=== PATIENT | female | born 1990 | race Hispanic/Latino ===

== ENCOUNTER 2023-10-21 11:28 | Day surgery (SDC) | payer BC ==
--- NOTE | 2023-10-19 17:36 | EKG ---
Test Date: 2023-10-18 Test Time: 12:24:11 Toxicologist: ALIYA MEASUREMENT RESULTS: Intervals: Rate: 57 CO: 140 QRSD: 94 QT: 414 QTc: 402 [place]: P: 46 CO: 140 QRS: 64 T: 61 INTERPRETIVE STATEMENTS: Sinus bradycardia Otherwise normal ECG No previous ECG available for comparison Electronically Signed On 10-19-23 17:34:08 COLD ROLL OPERATOR by Adam Martin
[2023-10-21] MEDS ORDERED: CEFAZOLIN SODIUM 2 GM/VIAL ONE (13:48)
[2023-10-21] MEDS ORDERED: Ringers Lactate 1,000 ML IV ONE (13:48)
[2023-10-21] MEDS ORDERED: dexAMETHasone 4 MG/ML VIAL ONE (15:14)
[2023-10-21] MEDS ORDERED: FENTANYL CITR 100 MCG/2 ML ONE (15:14)
[2023-10-21] MEDS ORDERED: MIDAZOLAM HCL 2 MG/2 ML INJ ONE (15:14)
[2023-10-21] MEDS ORDERED: LIDOCAINE 1% MPF 5 ML VIAL ONE (15:14)
[2023-10-21] MEDS ORDERED: ROCURONIUM 50 MG/5 ML VIAL IV ONE (15:14)
[2023-10-21] MEDS ORDERED: propofoL 200 MG/20 ML VIAL IV ONE (15:14)
[2023-10-21] MEDS ORDERED: ONDANSETRON 4 MG/2 ML VIAL ONE (15:15)
[2023-10-21] MEDS: BUPIVACAINE 0.25% PF 30 ML VIAL ONE ×2 (15:58→16:07)
[2023-10-21] MEDS ORDERED: SUGAMMADEX SODIUM 200 MG/2 ML VIAL IV ONE (16:19)
[2023-10-21] MEDS ORDERED: KETOROLAC 30 MG/ML INJ ONE (16:26)
--- NOTE | 2023-10-21 16:33 | P.OP ---
Preoperative diagnosis: Umbilical Hernia Postoperative diagnosis: Umbilical Hernia Primary procedure: Laparoscopic Umbilical Hernia Repair with mesh Anesthesia: GETA + Local Estimated blood loss: <5cc Specimen: None Findings: ~ 1.5cm hernia defect Complications: None () Implants: Bard ventralite ST 11.4cm round mesh, sorbafix x 45 tacks Transferred to: Recovery Room Condition: Good
[2023-10-21] MEDS: HYDROMORPHONE HCL 1 MG/ML INJ ONE ×4 (16:43→17:00)
[2023-10-21] MEDS ORDERED: HYDROCODONE/APAP 7.5/325 MG TAB ONE (17:47)
[2023-10-21 18:15] VITALS: BP 133/90; TEMP 96.9; O2SAT 100
--- NOTE | 2023-10-22 02:59 | OP ---
Date of Procedure: 10/21/2023 Surgeon: Claus Anthony MD, Preoperative Diagnosis: Umbilical hernia. Postoperative Diagnosis: Umbilical hernia. Procedure Performed: Laparoscopic umbilical hernia repair with mesh. Anesthesia: General endotracheal plus local with 0.25% Marcaine without epinephrine. Estimated Blood Loss: Less than 5 mL. Specimen: None. Findings: Approximately 1.5 cm umbilical hernia defect. Complications: None. Implants: Bard Ventralight ST mesh with Echo Positioning System, 11.4 cm round mesh utilized, SorbaF ix absorbable fixation tacks x45. Disposition: The patient was transferred to the recovery room in good condition. Procedure In Detail: After informed was obtained, the patient was brought to the operating room, pre pped and draped in the usual sterile fashion after adequate anesthesia was achieved. I anesthetized an area of the left upper quadrant down to subcutaneous tissues. A 5 mm 0-degree optical trocar was introduced in the abdomen without incident or complication. Insufflation was obtained to 15 mmHg at this time. There was no injury to vital structures upon entry into the abdomen. Additional trocar w as chosen in the left mid abdomen. This was similarly anesthetized, sharply incised and a 12 mm troc ar was placed under direct visualization without incident or complication. The LigaSure device was t hen used to remove preperitoneal incarcerated fat from the umbilical hernia site. This was removed, placed on the back table. Approximately 1.5 cm hernia defect was appreciated. Preperitoneal fat tis deo was swept back using the LigaSure device with good hemostasis at this point squeezing back in chico ropriate landing zone. At this point, an Endo Stitch with 2-0 V-Loc suture was used to run the defec t, imbricating the hernia sac, closing the space as well in a running fashion with good approxim ation of tissues. At this point, the suture was trimmed, removed, and found to be intact on the back table with good closure of the hernia defect. At this point, the Bard Ventralight ST mesh 11.4 cm r ound mesh was deployed in the abdomen, centrally positioned through a separate stab incision at the s upraumbilical position and it was deployed at this point using the balloon deployment system. At thi s point, I then secured the mesh to the anterior abdominal wall using SorbaFix absorbable fixation ta cks of total of 45 tacks were utilized. The balloon deployment system was found to be intact on the back table and the remaining tacks were applied for a total of 45 tacks as described. There was good apposition of mesh to the abdominal wall, no hemostat required. The patient was positioned slightly to the right side down. The 12 mm trocar site was then closed using a Jamie-Leilani suture passer with an 0 Vicryl in interrupted fashion. Good approximation of tissues. The abdomen was then compl etely desufflated under direct visualization with incident or complication. The remaining trocars we re removed. All skin edges were then copiously irrigated and then closed with a 4-0 Monocryl in a ru nning fashion. Dermabond placed over top. The patient tolerated the procedure without incident or c omplication, transferred to PACU in good condition. All counts correct at the end of the case. MER/MATTY Voice ID: [id number] Report ID: [id number]
== END 2023-10-21 18:20 | disposition home or self-care (01) ==
LOC: OR 11:28
PROVIDERS: ATTEND Surgery
PROC: 0WUF4JZ Supplement Abdominal Wall with Synthetic Substitute, Percutaneous Endoscopic Approach (ICD-10-PCS; principal; 2023-10-21 14:15)
DX: K42.9 Umbilical hernia without obstruction or gangrene (principal); I10 Essential (primary) hypertension; F32.A Depression, unspecified; F41.9 Anxiety disorder, unspecified
CPT/HCPCS: 93005; 80048; 36415; 49591; J2704; J1100; J2001; J2250; J3010; J1170 ×2; J2405; J7120; C1781

== ENCOUNTER 2024-05-24 16:46 | Emergency (ER) | payer BC ==
[2024-05-24] MEDS ORDERED: FAMOTIDINE 20 MG/2 ML VIAL IV ONE (17:17)
[2024-05-24] MEDS ORDERED: ASPIRIN 81 MG CHEWABLE TABLET ONE (17:17)
[2024-05-24] MEDS ORDERED: HYDRALAZINE HCL 20 MG/ML VIAL ONE (17:17)
[2024-05-24] MEDS ORDERED: NA CHLORIDE 0.9% 1,000 ML ONE (17:18)
[2024-05-24 17:29] LABS: Absolute Eosinophils 0.2 K/uL (0-0.5); Absolute Lymphocytes (CBC) 3.1 K/uL (0.7-4.9); Absolute Monocytes 0.6 K/uL (0.1-1.3); Absolute Neutrophil 4.5 K/uL (1.8-8.0); Basophils % 0.6 % (0-1.3); Hematocrit 40.3 % (36.0-45.0); Hemoglobin 13.4 g/dL (12.0-15.0); MCH 30.2 pg (27.0-35.0); MCHC 33.4 g/dL (32.0-36.0); MCV 90.4 fL (80-100); MPV 7.2 fL (7.6-11.3); Monocytes % 7.6 % (3.3-12.3); Neutrophils % 52.8 % (41.7-73.7); Platelets 309 thou/uL (152-406); RBC Red Blood Cell Count 4.45 M/uL (3.86-4.86); Red Cell Distribution Width 12.7 % (12.1-15.2)
[2024-05-24 17:35] LABS: D-Dimer 0.299 FEUug/mL (0-0.500); Protime INR 1.07
[2024-05-24 17:48] LABS: ALT/SGPT 108 U/L (13-56); AST/SGOT 40 U/L (15-37); Albumin 4.2 g/dL (3.4-5.0); Alkaline Phosphatase 82 U/L (45-117); Anion Gap 9.2 mEq/L (5.0-15.0); BUN Blood Urea Nitrogen 15 mg/dL (7-18); Bicarbonate 26 mEq/L (21-32); Bilirubin Total 0.4 mg/dL (0.2-1.0); Globulin 4.2 g/dL (2.3-3.5); Glomerular Filtration Rate 92 ml/min (=/>90); Glucose Level 94 mg/dL (74-106); Magnesium 1.8 mg/dL (1.6-2.4); Potassium 4.2 mEq/L (3.5-5.1); Protein, Total 8.4 g/dL (6.4-8.2); Sodium Level 134 mEq/L (136-145)
[2024-05-24 17:57] LABS: Bilirubin Direct < 0.2 mg/dL (0-0.2); Bilirubin Indirect, Calculated 0.2 mg/dL (0.2-0.8); Troponin High Sensitivity < 3.0 pg/mL (<58.9)
--- NOTE | 2024-05-24 18:07 | RAD REPORT ---
EXAM DESCRIPTION: RAD - Chest Single View - 05/24/2024 5:57 pm CLINICAL HISTORY: CHEST PAIN Chest pain. COMPARISON: <Comparisons> FINDINGS: Portable technique limits examination quality. The lungs are grossly clear. The heart is normal in size. No displaced fractures. IMPRESSION: No acute intrathoracic process suspected.
[2024-05-24 18:32] LABS: Specific Gravity 1.025 (1.005-1.030); Sqamous Epithelial <5 /HPF (None Seen); Urine Bacteria <20 /HPF (<20); Urine Bilirubin NEGATIVE (Negative); Urine Blood Negative (Negative); Urine Clarity Turbid (Clear); Urine Color Light-Yellow (Yellow); Urine Glucose NEGATIVE (Negative); Urine Ketones NEGATIVE (Negative); Urine Microscopic Reflex YN ORDER UMIC; Urine Mucus 1+ /HPF (None Seen); Urine Nitrite NEGATIVE (Negative); Urine Protein TRACE (Negative); Urine Urobilinogen Normal (Normal); Urine WBC <5 /HPF (<5)
[2024-05-24 18:33] LABS: Specific Gravity 1.025 (1.005-1.030)
[2024-05-24] MEDS ORDERED: AMLODIPINE 5 MG TAB ONE (18:44)
[2024-05-24 19:02] LABS: Barbiturates NEGATIVE (NEGATIVE); Benzodiazepines NEGATIVE (NEGATIVE); Cocaine NEGATIVE (NEGATIVE); METHAMPHETAM NEGATIVE (NEGATIVE); Methadone NEGATIVE (NEGATIVE); Opiates NEGATIVE (NEGATIVE); Phencyclidine NEGATIVE (NEGATIVE); THC Cannibis NEGATIVE (NEGATIVE)
--- NOTE | 2024-05-24 21:39 | EDPHYS ---
Physician Documentation [facility] Name: Hernán Tilley Age: 34 yrs Sex: Female : 1990 Arrival Date: 05/24/2024 Time: 16:46 Bed 20 Private MD: ED Physician Melchor Villareal HPI: 05/24 17:15 This 34 yrs old Female presents to ER via Ambulatory with complaints of Chest cp Pain, High Blood Pressure. 17:15 The patient or guardian reports chest pain that is located primarily in the substernal cp area. The pain does not radiate. The chest pain is described as throbbing. Duration: The patient or guardian reports a single episode, that is still ongoing, and unchanged. 17:15 Associated signs and symptoms: Pertinent positives: elevated blood pressure, Pertinent cp negatives: abdominal pain, cough, diaphoresis, lower extremity pain, lower extremity swelling, vomiting. 17:15 Severity of pain: in the emergency department the pain is unchanged. cp Historical: - Allergies: 16:52 rubbing alcohol; ld1 - PMHx: 16:52 Hypertensive disorder; Asthma; ld1 16:53 TIA; ld1 - PSHx: 16:52 Tubal ligation; Tonsillectomy; ld1 - Immunization history:: Adult Immunizations up to date. - Infectious Disease History:: Denies. - Social history:: Smoking status: Patient denies any tobacco usage or history of. ROS: 17:20 Constitutional: Negative for body aches, chills, fever, poor PO intake, cp 17:20 Cardiovascular: Positive for chest pain, Negative for palpitations, cp 17:20 Respiratory: Negative for cough, shortness of breath, wheezing, 17:20 Abdomen/GI: Negative for abdominal pain, vomiting, diarrhea, constipation, 17:20 Neuro: Negative for altered mental status, dizziness, headache, numbness, syncope, weakness, 17:20 All other systems are negative, Exam: 17:15 ECG was reviewed by the Attending Physician. cp 17:25 Constitutional: The patient appears in no acute distress, alert, awake, cp non-diaphoretic, non-toxic, well developed, well nourished, uncomfortable, 17:25 Head/Face: Normocephalic, atraumatic. cp 17:25 Eyes: Periorbital structures: appear normal, Conjunctiva: normal, no exudate, no injection, Sclera: no appreciated abnormality, Lids and lashes: appear normal, bilaterally, 17:25 ENT: External ear(s): are unremarkable, Nose: is normal, Mouth: Lips: moist, Oral mucosa: pink and intact, moist, Posterior pharynx: Airway: no evidence of obstruction, patent, 17:25 Neck: ROM/movement: is normal, is supple, without pain, no range of motions limitations, 17:25 Chest/axilla: Inspection: normal, 17:25 Cardiovascular: Rate: normal, Rhythm: regular, Edema: is not appreciated, JVD: is not appreciated, 17:25 Respiratory: the patient does not display signs of respiratory distress, Respirations: normal, no use of accessory muscles, no retractions, labored breathing, is not present, Breath sounds: are clear throughout, no decreased breath sounds, no stridor, no wheezing, 17:25 Abdomen/GI: Inspection: abdomen appears normal, Palpation: abdomen is soft and non-tender, in all quadrants, 17:25 Back: pain, is absent, ROM is normal, 17:25 Neuro: Orientation: to person, place \T\ time. Mentation: is normal, Motor: moves all fours, strength is normal, Sensation: is normal, Vital Signs: 16:50 BP 211 / 118; Pulse 71; Resp 18; Temp 97.6(TE); Pulse Ox 98% on R/A; Weight 92.08 kg; ld1 Height 5 ft. 9 in. ; Pain 4/10; 18:07 BP 152 / 97; Pulse 70; Resp 16; Pulse Ox 100% on R/A; mb9 18:27 BP 158 / 104; Pulse 65; Resp 18; Pulse Ox 99% on R/A; ar6 20:03 BP 145 / 100; Pulse 68; Pulse Ox 100% on R/A; Pain 0/10; tm6 21:19 BP 159 / 95; Pulse 64; Pulse Ox 99% on R/A; Pain 0/10; tm6 21:49 BP 156 / 114; Pulse 64; Resp 19; Temp 97.8; Pulse Ox 99% on R/A; Pain 0/10; tm6 16:50 Body Mass Index 29.98 (92.08 kg, 175.26 cm) ld1 16:50 Pain Scale: Adult ld1 20:03 Pain Scale: Adult tm6 21:19 Pain Scale: Adult tm6 21:49 Pain Scale: Adult tm6 MDM: 16:59 Patient medically screened. cp 21:38 Data reviewed: vital signs, nurses notes, lab test result(s), EKG, radiologic studies, cp plain films, and as a result, I will discharge patient. 21:38 Differential diagnosis: abnormal EKG, acute myocardial infarction, myocarditis, cp pneumonia, pneumothorax, pulmonary embolus, thoracic aortic disection. I considered the following discharge prescriptions or medication management in the emergency department Medications were administered in the Emergency Department. See MAR. Independent interpretation of the following test(s) in the Emergency Department EKG: See my EKG interpretation above. Care significantly affected by the following chronic conditions: Hypertension. Counseling: I had a detailed discussion with the patient and/or guardian regarding the historical points, exam findings, and any diagnostic results supporting the discharge/admit diagnosis, lab results, radiology results, the need for outpatient follow up, a haunted history tour guide, to return to the emergency department if symptoms worsen or persist or if there are any questions or concerns that arise at home. Response to treatment: the patient's symptoms have markedly improved after treatment, and as a result, I will discharge patient. Special discussion: Based on the patient's history, exam, and Dx evaluation, there is no indication for emergent intervention or inpatient Tx. It is understood by the patient/guardian that if the Sx's persist or worsen they need to return immediately for re-evaluation. I have referred the patient to see his PCP for further evaluation of high blood pressure. 05/24 17:12 Order name: Basic Metabolic Panel; Complete Time: 18:15 cp 05/24 17:12 Order name: CBC with Diff; Complete Time: 18:15 cp 05/24 17:12 Order name: D-Dimer; Complete Time: 18:15 cp 05/24 17:12 Order name: LFT's; Complete Time: 18:15 cp 05/24 18:15 Interpretation: Normal except: AST 40; ALT 108. cp 05/24 17:12 Order name: Magnesium; Complete Time: 18:15 cp 05/24 17:12 Order name: PT-INR; Complete Time: 18:15 cp 05/24 17:12 Order name: Troponin HS; Complete Time: 18:15 cp 05/24 17:12 Order name: Urinalysis w/ reflexes; Complete Time: 18:39 cp 05/24 17:12 Order name: Test, Urine; Complete Time: 18:39 cp 05/24 17:12 Order name: Urine Drug Screen; Complete Time: 19:16 cp 15 19:16 Interpretation: Reviewed. cp / 19:52 Order name: Troponin High Sensitivity; Complete Time: 21:24 cp 05/24 17:12 Order name: XRAY Chest (1 view); Complete Time: 18:15 cp 15 17:12 Order name: Cardiac monitoring; Complete Time: 17:15 cp 0815 17:12 Order name: EKG - Nurse/Tech; Complete Time: 17:15 cp 05/24 17:12 Order name: IV Saline Lock; Complete Time: 17:15 cp 15 17:12 Order name: Labs collected and sent; Complete Time: 17:15 cp 05/24 17:12 Order name: O2 Per Protocol; Complete Time: 17:15 cp 05/24 17:12 Order name: O2 Sat Monitoring; Complete Time: 17:15 cp EC:15 Rate is 68 beats/min. Rhythm is regular. AL interval is normal. QRS interval is normal. cp QT interval is normal. T waves are Inverted in lead aVR. Interpreted by me. Reviewed by me. Administered Medications: 17:20 Drug: hydrALAZINE IVP 10 mg IVP once Route: IVP; Site: left antecubital; mb9 18:07 Follow up: Response: No adverse reaction mb9 17:25 Drug: Famotidine IVP 20 mg IVP once; dilute with 10 mL 0.9% NaCl; give over 2 minutes mb9 Route: IVP; Site: left antecubital; 18:07 Follow up: Response: No adverse reaction mb9 17:25 Drug: NS 0.9% IV 1000 ml IV at 500 ml/hr Per protocol Route: IV; Rate: 500 ml/hr; Site: mb9 left antecubital; 18:43 Follow up: Response: No adverse reaction; IV Status: Completed infusion mb9 17:26 Drug: Aspirin PO Chewable Tablet 324 mg PO once; 81 mg tablets x 4 Route: PO; mb9 18:08 Follow up: Response: No adverse reaction mb9 18:45 Drug: amLODIPine PO 5 mg PO once Route: PO; mb9 20:04 Follow up: Response: No adverse reaction tm6 Disposition Summary: 05/24/24 21:39 Discharge Ordered Notes: Location: Home cp Problem: new cp Symptoms: have improved cp Condition: Stable cp Diagnosis - Chest pain, unspecified cp - Hypertensive heart disease without heart failure cp Followup: cp - With: Adam Martin MD - When: 2 - 3 days - Reason: Recheck today's complaints Discharge Instructions: - Discharge Summary Sheet cp - Nonspecific Chest Pain, Adult cp - Hypertension, Adult cp - Aspirin and Your Heart cp - Form - Blood Pressure Record Sheet cp - How to Take Your Blood Pressure cp Forms: - Medication Reconciliation Form cp - Antibiotic Education cp - Prescription Opioid Use cp - Patient Portal Instructions cp - Leadership Thank You Letter cp Prescriptions: - amlodipine 5 mg Oral tablet - take 1 tablet ORAL route daily; 30 tablet; Refills: 0, Product Selection cp Permitted Signatures: Dispatcher [employer] EDMS Melchor Farias PA PA cp Nadya Aviles RN RN ld1 Janette Ruiz RN RN mb9 Kirstie Gama RN tm6 Corrections: (The following items were deleted from the chart) 17:13 17:13 BASIC METABOLIC PANEL+C.LAB.BRZ ordered. EDMS EDMS 17:13 17:13 CBC+H.LAB.BRZ ordered. EDMS EDMS 17:13 17:13 D-DIMER+COAG.LAB.BRZ ordered. EDMS EDMS 17:13 17:13 HEPATIC FUNCTION+C.LAB.BRZ ordered. EDMS EDMS 17:13 17:13 MAGNESIUM+C.LAB.BRZ ordered. EDMS EDMS 17:13 17:13 PROTIME (+INR)+COAG.LAB.BRZ ordered. EDMS EDMS 17:13 17:13 Troponin High Sensitivity+C.LAB.BRZ ordered. EDMS EDMS 17:13 17:13 Urinalysis+U.LAB.BRZ ordered. EDMS EDMS 17:13 17:13 Test, Urine+UC.LAB.BRZ ordered. EDMS EDMS 17:13 17:13 URINE DRUG SCREEN+UC.LAB.BRZ ordered. EDMS EDMS 17:13 17:13 Chest Single View+RAD.RAD.BRZ ordered. EDMS EDMS 05/25 21:34 05/24 17:15 The chest pain is described as a pressure, cp cp
--- NOTE | 2024-05-24 21:39 | ER ---
Nurse's Notes [facility] Name: Hernán Tilley Age: 34 yrs Sex: Female : 1990 Arrival Date: 05/24/2024 Time: 16:46 Bed 20 Private MD: Diagnosis: Chest pain, unspecified;Hypertensive heart disease without heart failure Presentation: 05/24 16:50 Chief complaint: Patient states: BP check was high - pt began having chest pain after ld1 checking blood pressure. Coronavirus screen: At this time, the client does not indicate any symptoms associated with coronavirus-19. Ebola Screen: No symptoms or risks identified at this time. Initial Sepsis Screen: Does the patient meet any 2 criteria? No. Patient's initial sepsis screen is negative. Does the patient have a suspected source of infection? No. Patient's initial sepsis screen is negative. Risk Assessment: Do you want to hurt yourself or someone else? Patient reports no desire to harm self or others. Onset of symptoms was May 24, 2024. 16:50 Method Of Arrival: Ambulatory ld1 16:50 Acuity: TALA 3 ld1 Triage Assessment: 16:53 General: Appears in no apparent distress. uncomfortable, Behavior is cooperative, ld1 anxious. Pain: Denies pain. Pain: Complains of pain in chest Pain does not radiate. Pain currently is 4 out of 10 on a pain scale. Quality of pain is described as throbbing, Pain began suddenly. EENT: No signs and/or symptoms were reported regarding the EENT system. EENT: No signs and/or symptoms were reported regarding the EENT system. Neuro: Level of Consciousness is awake, alert, obeys commands, Oriented to person, place, time, situation, Appropriate for age. Cardiovascular: Capillary refill < 3 seconds Patient's skin is warm and dry. Respiratory: Airway is patent Respiratory effort is even, unlabored. GI: Abdomen is round non-distended. : No signs and/or symptoms were reported regarding the genitourinary system. Derm: No signs and/or symptoms reported regarding the dermatologic system. Musculoskeletal: No signs and/or symptoms reported regarding the musculoskeletal system. Historical: - Allergies: 16:52 rubbing alcohol; ld1 - PMHx: 16:52 Hypertensive disorder; Asthma; ld1 16:53 TIA; ld1 - PSHx: 16:52 Tubal ligation; Tonsillectomy; ld1 - Immunization history:: Adult Immunizations up to date. - Infectious Disease History:: Denies. - Social history:: Smoking status: Patient denies any tobacco usage or history of. Screenin:50 [facility] ED Fall Risk Assessment (Adult) History of falling in the last 3 months, ar6 including since admission No falls in past 3 months (0 pts) Confusion or Disorientation No (0 pts) Intoxicated or Sedated No (0 pts) Impaired Gait No (0 pts) Mobility Assist Device Used No (0 pt) Altered Elimination No (0 pt) Score/Fall Risk Level 0 - 2 = Low Risk. Abuse screen: Denies threats or abuse. Denies injuries from another. Nutritional screening: No deficits noted. Tuberculosis screening: No symptoms or risk factors identified. Assessment: 16:50 Also complains of nausea. General: Appears in no apparent distress. uncomfortable, ar6 Behavior is calm, cooperative, appropriate for age. Pain: Complains of pain in chest Pain currently is 4 out of 10 on a pain scale. Quality of pain is described as pressure, sharp, Pain began suddenly, Is continuous. Pain: Alleviated by rest, Also complains of nausea, epigastric pain. Neuro: Level of Consciousness is awake, alert, obeys commands, Oriented to person, place, time, situation. Cardiovascular: Reports chest pain, nausea, Capillary refill < 3 seconds Pulses are all present. Chest pain is described as mild. Respiratory: Airway is patent. GI: Abdomen is round non-distended, Abd is soft and non tender X 4 quads. Abd is non tender X 4 quads Reports epigastric pain. : No signs and/or symptoms were reported regarding the genitourinary system. EENT: No signs and/or symptoms were reported regarding the EENT system. Derm: No signs and/or symptoms reported regarding the dermatologic system. Derm: Skin is intact, is healthy with good turgor, Skin is dry, Skin is pink, warm \T\ dry. Musculoskeletal: No signs and/or symptoms reported regarding the musculoskeletal system. 18:26 Pain: Quality of pain is described as pressure, Pain began Also complains of Current ar6 management is partially effective. 18:28 Reassessment: Patient and/or family updated on plan of care and expected duration. Pain ar6 level reassessed. Patient is alert, oriented x 3, equal unlabored respirations, skin warm/dry/pink. Patient states feeling better. Patient states symptoms have improved. 21:19 Reassessment: Patient appears in no apparent distress at this time. Patient and/or tm6 family updated on plan of care and expected duration. Pain level reassessed. Patient is alert, oriented x 3, equal unlabored respirations, skin warm/dry/pink. 21:49 Reassessment: Patient appears in no apparent distress at this time. Patient and/or tm6 family updated on plan of care and expected duration. Pain level reassessed. Patient is alert, oriented x 3, equal unlabored respirations, skin warm/dry/pink. Vital Signs: 16:50 BP 211 / 118; Pulse 71; Resp 18; Temp 97.6(TE); Pulse Ox 98% on R/A; Weight 92.08 kg; ld1 Height 5 ft. 9 in. ; Pain 4/10; 18:07 BP 152 / 97; Pulse 70; Resp 16; Pulse Ox 100% on R/A; mb9 18:27 BP 158 / 104; Pulse 65; Resp 18; Pulse Ox 99% on R/A; ar6 20:03 BP 145 / 100; Pulse 68; Pulse Ox 100% on R/A; Pain 0/10; tm6 21:19 BP 159 / 95; Pulse 64; Pulse Ox 99% on R/A; Pain 0/10; tm6 21:49 BP 156 / 114; Pulse 64; Resp 19; Temp 97.8; Pulse Ox 99% on R/A; Pain 0/10; tm6 16:50 Body Mass Index 29.98 (92.08 kg, 175.26 cm) ld1 16:50 Pain Scale: Adult ld1 20:03 Pain Scale: Adult tm6 21:19 Pain Scale: Adult tm6 21:49 Pain Scale: Adult tm6 Vitals: 16:50 Cardiac Rhythm Assessment Regular. ar6 ED Course: 16:46 Patient arrived in ED. mr 16:50 Melchor Farias PA is PHCP. cp 16:50 Patient has correct armband on for positive identification. Bed in low position. Call ar6 light in reach. Side rails up X2. Client placed on continuous cardiac and pulse oximetry monitoring. NIBP monitoring applied. 16:50 No provider procedures requiring assistance completed. IV is patent. Patient maintains ar6 SpO2 saturation greater than 95% on room air. 16:51 Melchor Villareal MD is Attending Physician. cp 16:52 Triage completed. ld1 16:53 Arm band placed on right wrist. ld1 17:05 Merline Haines, RN is Primary Nurse. ar6 17:16 Initial lab(s) drawn, by me, sent to lab. EKG done, by ED staff, reviewed by Melchor Villareal MD. Inserted saline lock: 18 gauge in left antecubital area, using aseptic technique. Blood collected. Flushed with 10 mL NS. 17:25 Basic Metabolic Panel Sent. mb9 17:25 CBC with Diff Sent. mb9 17:25 D-Dimer Sent. mb9 17:25 LFT's Sent. mb9 17:25 Magnesium Sent. mb9 17:25 PT-INR Sent. mb9 17:25 Troponin HS Sent. mb9 17:58 XRAY Chest (1 view) In Process Unspecified. EDMS 21:38 Adam Martin MD is Referral Physician. cp 21:49 Provided Education on: follow up with cardiology. tm6 21:49 IV discontinued, intact, bleeding controlled, No redness/swelling at site. Pressure tm6 dressing applied. Administered Medications: 17:20 Drug: hydrALAZINE IVP 10 mg IVP once Route: IVP; Site: left antecubital; mb9 18:07 Follow up: Response: No adverse reaction mb9 17:25 Drug: Famotidine IVP 20 mg IVP once; dilute with 10 mL 0.9% NaCl; give over 2 minutes mb9 Route: IVP; Site: left antecubital; 18:07 Follow up: Response: No adverse reaction mb9 17:25 Drug: NS 0.9% IV 1000 ml IV at 500 ml/hr Per protocol Route: IV; Rate: 500 ml/hr; Site: mb9 left antecubital; 18:43 Follow up: Response: No adverse reaction; IV Status: Completed infusion mb9 17:26 Drug: Aspirin PO Chewable Tablet 324 mg PO once; 81 mg tablets x 4 Route: PO; mb9 18:08 Follow up: Response: No adverse reaction mb9 18:45 Drug: amLODIPine PO 5 mg PO once Route: PO; mb9 20:04 Follow up: Response: No adverse reaction tm6 Medication: 18:08 VIS not applicable for this client. mb9 Outcome: 21:39 Discharge ordered by . cp 21:49 Discharged to home ambulatory, with family, tm6 21:49 Condition: stable 21:49 Discharge instructions given to patient, family, Instructed on discharge instructions, follow up and referral plans. medication usage, Demonstrated understanding of instructions, follow-up care, medications, Prescriptions given X 1, 21:50 Patient left the ED. tm6 Signatures: Dispatcher [employer] EDMS Janette Mayers, Reg Reg mr Melchor Farias, Nadya Aguilera cp, RN RN ld1 Janette Ruiz, RN RN mb9 Kirstie Gama RN RN tm6 Merline Haines RN RN ar6
[2024-05-24 22:17] VITALS: O2SAT 99
[2024-05-24 22:18] VITALS: BP 156/114; TEMP 97.8
== END 2024-05-24 21:50 | disposition home or self-care (01) ==
LOC: ER 16:46
DX: R07.9 Chest pain, unspecified (principal); I11.9 Hypertensive heart disease without heart failure; J45.909 Unspecified asthma, uncomplicated; Z86.73 Personal history of transient ischemic attack (TIA), and cerebral infarction without residual deficits; Z88.8 Allergy status to other drugs, medicaments and biological substances
CPT/HCPCS: 96361; 93005; 85025; 81001; 80048; 36415; 83735; 81025; 85610; 85379; 80076; 84484 ×2; 80307; 71045; 96375; 96374; 99285; J0360; J7030